=== PATIENT | male | born 1960 | race Caucasian/White ===

== ENCOUNTER 2016-12-15 10:23 | Emergency (ER) | payer OTHER, SELFPAY ==
[~2016-12-15 10:23] MED LIST: ACETAMINOPHEN325 MG PO; ASPIR 8181 MG PO; CLOPIDOGREL75 MG PO; HYDROPHILIC410 GM TP; LIPITOR DPS40 MG PO; LISINOPRIL10 MG PO; METOPROLOL SUCC25 MG PO; NEURONTIN DPS300 MG PO; PAXIL DPS20 MG PO; TEMOVATE O.05%15 GM TP
--- NOTE | 2016-12-22 08:39 | ER ---
ADMIT: 12/15/2016 RM/LOC: ER [facility] MR#: [id number] [address] [id number] ROBBY RAMIREZ [address] [place] [address] Emergency Room Report SEX: M AGE: 56 : 1960 DATE: 12/15/2016 Morillo Han is 56-year-old who comes to the Emergency Department with multitude of complaints. His history was very drawn out throughout his stay in the ER. He initially came for swelling of his lower extremities then complained of shortness of breath, later complained of chest pain which he described as sharp, stabbing in the surgical incision area, worsened with deep inspiration or coughing. All these complaints have been going on for the past 2 or 3 months. Much later study done in the hospital approximately a year ago with the exact same symptoms, those records were pulled and reviewed. See T sheet for remainder of history and physical. Cardiac workup was negative. CTA of the chest was negative for PE. The patient was diagnosed with atypical chest pain. Instructed to follow up with [facility] this coming week. He was given prescription for [place] as he felt this pain may be associated to neck pain he has been having for quite some time as well that came out at time of discharge. Nolberto Harper MD/ marco JOB #: [id number] CC: Nolberto Harper MD, Attending Physician UNKNOWN, Family Physician
== END 2016-12-15 14:00 | disposition home or self-care (01) ==
LOC: ER 10:23
DX: R07.89 Other chest pain (principal); I11.9 Hypertensive heart disease without heart failure; E11.9 Type 2 diabetes mellitus without complications; Z95.1 Presence of aortocoronary bypass graft; Z79.84 Long term (current) use of oral hypoglycemic drugs; Z79.01 Long term (current) use of anticoagulants; Z79.899 Other long term (current) drug therapy